=== PATIENT | female | born 1940 | race Caucasian/White ===

== ENCOUNTER 2024-10-07 08:53 | Emergency (ER) | payer MEDICARE, BC, SELFPAY ==
[2024-10-07 08:54] VITALS: PULSE 96
[2024-10-07 08:59] VITALS: BP 121/72; PULSE 104; RESP 17; TEMP 36.8; O2SAT 97; BMI 22.1
--- NOTE | 2024-10-07 09:15 | EDNOTE_ITS ---
ED Abdominal Pain RME/HPI General Chief Complaint: Abdominal Pain Stated complaint: abdominal pain Time seen by provider: 10/07/24 09:13 Arrival date/time: 10/07/24 08:53 RME / HPI RME / HPI narrative: 84 year old female with history of asthma, COPD, hypertension, hypothyroidism, s/p liver failure, recurrent UTI's, indwelling catheter since March 2024, esophageal varices presents to the ED BIBA from home for complaint of I think I have a UTI . States last night she began to have pain across her lower abdomen, right greater than left. Accompanied by nausea and vomiting beginning this morning. Mentioned on 09/30/2024 she had a urinalysis performed showing an infection and prescribed Bactrim which she has taken. Denies fevers, chills, sweats, chest pain, shortness of breath, cough, or hematuria. Patient mentioned her kelly catheter was changed 2 weeks ago. Related Data Home Medications ?Medication ?Instructions ?Recorded ?Confirmed hydroxyzine HCl 10 mg tablet 10 mg PO BID Anxiety 04/18/24 10/07/24 pantoprazole 40 mg tablet,delayed 20 mg PO QDAY Gastric Reflux 04/18/24 10/07/24 release (Protonix) tramadol 50 mg tablet 50 mg PO Q8H PRN Pain, Moderate 04/18/24 10/07/24 potassium chloride 20 mEq 20 meq PO QDAY 05/16/24 10/07/24 tablet,extended release allopurinol 100 mg tablet 100 mg PO DAILY 08/09/24 10/07/24 metoprolol tartrate 25 mg tablet 25 mg PO BID 08/09/24 10/07/24 prednisone 5 mg tablet 5 mg PO QDAY 08/09/24 10/07/24 folic acid 1 mg tablet 1 mg PO DAILY 08/10/24 10/07/24 levothyroxine 50 mcg capsule 50 mcg PO DAILY 08/10/24 10/07/24 Previous Rx's ?Medication ?Instructions ?Recorded spirometers and accessories #1 ea 04/23/24 Allergies Allergy/AdvReac Type Severity Reaction Status Date / Time ciprofloxacin [From Cipro] Allergy Severe Redness of Verified 05/09/24 21:51 Skin doxycycline Allergy Severe Hives Verified 10/07/24 09:38 moxifloxacin [From Avelox] Allergy Severe Dizziness Verified 05/09/24 21:51 Penicillins Allergy Severe Hives Verified 05/09/24 21:51 tetracycline Allergy Severe Hives Verified 05/09/24 21:51 colchicine Allergy Verified 10/07/24 09:38 levofloxacin [From Levaquin] Allergy Verified 10/07/24 09:38 ibuprofen AdvReac Mild Nausea Verified 10/07/24 09:38 Review of Systems Review of Systems Narrative Review of Systems: GEN: No fever, no chills, no weight loss EYES: No discharge, no visual changes, no pain HEENT: No ear pain, no congestion, no sore throat PULM: No shortness of breath, no cough, no congestion CV: No chest pain, no dyspnea on exertion, no palpitations GI: +n/v, no diarrhea, +pain, no constipation : + I think I have a UTI . MUSC/SKEL No joint pain, no back pain SKIN: No rash PSYCH: No hallucinations, no depression HEME/LYMPH: No easy bleeding or bruising tendencies NEURO: No weakness, no headache Past Medical History Past Medical History CARDIAC: Positive Cardiac Disorders, Congestive Heart Failure, Hypertension and Hypotension RESPIRATORY: Positive Chronic Obstructive Pulmonary Disease (COPD), Asthma, Bronchitis and Pneumonia GASTROINTESTINAL: Positive Obesity GENITOURINARY: Positive Genitourinary Disorders and Renal Disease REPRODUCTIVE: Positive Previous Pregnancies MUSCULOSKELETAL: Positive Musculoskeletal Disorders and Gout ENDOCRINE: Positive Endocrine Disorders and Hypothyroidism HEMATOLOGIC: Positive Blood Disorders and Anemia PSYCHO/SOCIAL: Positive Anxiety OTHER HISTORY: Positive Blood Transfusions, Chicken Pox, Measles and Mumps Family History FAMILY HISTORY: Positive Family Cardiac Disorders and Family Cancer Surgical History SURGICAL: Positive Nose Surgery Social History SMOKING STATUS: Current every day smoker SECOND HAND EXPOSURE: No ED Exam Narrative Physical exam: GENERAL APPEARANCE: Well hydrated, well nourished, in no acute distress. VITALS: All vitals were reviewed and the pulse ox is 97% on room air which is normal according to my interpretation. HEENT: Normocephalic, atramatic, EOMI, EACs are patent. There is no bulge or retraction. Throat without erythema or exudate. Moist oromucosa. No jaundice NECK: Supple, no JVD or bruits. CARDIOVASCULAR: Heart regular without S3-S4 or murmur. No rubs or gallops. LUNGS/CHEST: Clear to auscultation bilaterally. No rales, rhonchi, or wheezing. Normal inspection. ABDOMEN: Soft, tenderness in the suprapubic region bilaterally, right and left, normal bowel sounds. No pulsatile masses. No rebound, rigidity, or guarding. No incarcerated hernia. EXTREMITIES: Normal inspection and palpation. No edema, clubbing, or cyanosis. Intact CSM SKIN: Warm and dry without rashes. Normal inspection. MUSCULOSKELETAL: Normal inspection. No gross deformity, full ROM all extremities NEURO: Alert and oriented x3. Cranial nerves II through XII grossly intact. There are no other motor or sensory deficits noted. PSYCHIATRIC: Normal mood and affect. No psychosis Course Quality Measures none Orders Category Date Time Status CT Screening NOW Care 10/07/24 09:34 Active Enema Administration NOW Care 10/07/24 15:30 Completed Fleet [Enema Administration] NOW Care 10/07/24 15:29 Active Kelly [Urinary Catheter] QS Care 10/07/24 15:29 Active Kelly [Urinary Catheter] QS Care 10/07/24 15:[address] abdomen pelvis w con Stat Exams 10/07/24 09:33 Completed CBC Stat Lab 10/07/24 09:35 Completed CMP [Comprehensive Metabolic Panel] Stat Lab 10/07/24 09:35 Completed Lipase Stat Lab 10/07/24 09:35 Completed UA, C/S IF [Urinalysis, C/S if Indicated] Stat Lab 10/07/24 09:50 Completed Urine Culture Stat Lab 10/07/24 09:50 Received Morphine Inj Med 10/07/24 12:19 Discontinued 2 mg IVP X1 ONE Ondansetron Inj [Zofran Inj] Med 10/07/24 12:19 Discontinued 4 mg IV X1 ONE Sodium Chloride 0.9% 1000 ml [Ns] 1,000 ml Med 10/07/24 09:33 Discontinued IV 250 mls/hr Vital Signs Vital signs: Vital Signs Temperature 98.3 F 10/07/24 08:59 Pulse Rate 104 H 10/07/24 08:59 Respiratory Rate 17 10/07/24 08:59 Blood Pressure 121/72 10/07/24 08:59 Pulse Oximetry (%) 97 10/07/24 08:59 Oxygen Delivery Method Room Air 10/07/24 08:59 Abdominal Pain MDM MDM Narrative MDM Narrative:: I, Rebecca Puga, danitza scribing for and in the presence of Dr. Vizcaino. CBC is negative. CMP and lipase negative. UA positive for UTI. CT abdomen and pelvic was reviewed by and interpreted by me as follow. Plenty of stool including the stool in the distal rectum. Bladder was distended in spite of having Kelly in. No free air. No free fluid. No bowel obstruction. The old Kelly which is clogged was removed by the nursing staff, a brand-new Kelly was inserted and we get plenty of urine coming out which is about 800 mL of urine. Nurse also gave the patient 2 Fleet enema [id number]. And the patient had plenty of stool coming out. And she feeling much better. 6 PM, the patient is stable and improved and wants to go home. UA is positive for UTI but the patient does not want to take any new antibiotic. She is currently on Bactrim. She says she is allergic to a lot and Bactrim is one of the medication that she can tolerate. Daughter had the same opinion? That is she does not want the antibiotic to be changed Patient data External records reviewed:: [facility] previous records (08/08/2024 through 08/12/2024 for UTI ) and EMS form Clinical information provided by:: patient and EMS Social determinants that could affect healthcare access:: none Patient has the following chronic illnesses:: asthma, COPD, hypertension, hypothyroidism, s/p liver failure, indwelling catheter since March 2024, esophageal varices How is presenting disease/condition affected by chronic disease/condition?: e xacerbated by Evaluation data The following diagnostics were reviewed and interpreted by me:: lab results and radiology exam(s) Lab and/or radiology exams considered but not ordered:: None Interpretation Summary: Ordering Physician: Cullen Vizcaino MD Date of Service: 10/07/24 Procedure(s): CT abdomen pelvis w con Accession Number(s): [id number] cc: Mireya Pagan; David Bower MD; Cullen Vizcaino MD~ Examination: CT abdomen with intravenous contrast CT pelvis with intravenous contrast 2-D coronal reconstructions 2-D sagittal reconstructions Date and time of exam:October 07, 2024 1208 hours INDICATIONS: Onset lower abdominal pain today COMPARISON: 08/08/2024. CTDI: vol (mGy) 6.49 DLP: (mGycm) 341 Technique: Multiple axial sections of the abdomen and pelvis have been obtained. 64 slice high-resolution scanner used. 3 mm axial sections have been obtained, post intravenous injection 60 cc [id number] 2-D sagittal, coronal reconstructions obtained. Low dose protocols were performed. One or more of the following dose reduction techniques were used; automated exposure control, adjustment of the mA and/or KV according to patient size, use of iterative reconstruction technique. Findings: Mild enlargement cardiac contour Minimal bilateral pleural fluid Pericardial effusion measuring up to 9 mm in thickness No visualized liver or splenic lesion Distended gallbladder gallbladder wall appears mildly thickened No pancreatic or adrenal mass Tiny bilateral renal cysts, no hydronephrosis Heavy abdominal aortic calcification Multiple fluid distended small bowel loops Normal appendix Atrophic anteverted uterus Very large amounts of stool in the rectum with thickening of the rectal wall Mild bladder wall thickening Advanced diffuse lumbar degenerative disc disease IMPRESSION: Distended gallbladder, recommend repeating the gallbladder sonogram No hydronephrosis Fluid distended small bowel loops, consider ileus enteritis Normal appendix Large amounts of stool in the rectum with thickening of the rectal wall, differential would include proctitis Dictated By: David Bower MD Signed By: <Electronically signed by David Bower MD in [place]> 10/07/24 1314 Medications / Prescriptions Medications or Prescriptions considered but not ordered:: None Medication administrations:: Medication Administration History Discontinued Medications Sodium Chloride (Ns) 1,000 mls @ 250 mls/hr IV .Q4H ONE Stop: 10/07/24 13:32 Last Infusion: 10/07/24 13:53 Dose: Infused Documented By: Admin: 10/07/24 10:08 Dose: 250 mls/hr Documented By: ROSSANA Morphine Sulfate (Morphine Sulf Inj 10 Mg/Ml Vial) 2 mg IVP X1 ONE Stop: 10/07/24 12:20 Last Admin: 10/07/24 12:30 Dose: 2 mg Documented By: KM Ondansetron HCl (Ondansetron Inj 2 Mg/Ml Inj 2 Ml) 4 mg IV X1 ONE; Protocol Stop: 10/07/24 12:20 Last Admin: 10/07/24 12:30 Dose: 4 mg Documented By: RAFFY See above Consultations Consultation(s) initiated? (list below): No Diagnosis Differential diagnosis abdominal pain: abdominal pain, acute appendicitis, calculus of kidney and other (UTI) Most likely diagnosis given after review of the tests above:: Urinary tract infection Constipation Urinary retention Kelly change Admission Indicated Admission indicated?: not indicated Admission Request Was there a request for admission?: No Disposition Plan Disposition Plan: Discharge Discharge Attestation Discharge Attestation: The patient and all family members were given an opportunity to ask questions and understood the discharge instructions. Discharge instructions specifically effects, indications for sooner follow up or return to the emergency department, and the expected course of current diagnosis. Patient condition: Stable Discharge Plan Plan Patient Disposition: HOME (Self Care) Disposition Comment: Stable and improved Prescriptions/Referrals Prescriptions/Med Rec: No Action tramadol 50 mg Tablet 50 mg PO Q8H PRN (Reason: Pain, Moderate) hydroxyzine HCl 10 mg Tablet 10 mg PO BID Hold Instructions: Resume on 06/11/24. re evaluate with PCP, unable to verify pantoprazole [Protonix] 40 mg tablet,delayed release (DR/EC) 20 mg PO QDAY (DME) spirometers and accessories Device See Rx Instructions .Route Qty: 1 0RF Rx Instructions: As directed prednisone 5 mg tablet 5 mg PO QDAY Patient Comments: TAKE 1 TABLET BY MOUTH EVERY DAY FOR 30 DAYS allopurinol 100 mg tablet 100 mg PO DAILY Patient Comments: TAKE 1 TABLET TWICE A DAY BY ORAL ROUTE FOR 90 DAYS. metoprolol tartrate 25 mg tablet 25 mg PO BID Hold Instructions: Resume on 08/17/24. Unable to verify if patient is taking medication. Follow up with PCP Patient Comments: TAKE 1 TABLET BY MOUTH TWICE A DAY folic acid 1 mg Tablet 1 mg PO DAILY levothyroxine 50 mcg Capsule 50 mcg PO DAILY potassium chloride 20 mEq Tablet Extended Release 20 meq PO QDAY Hold Instructions: Resume on 06/10/24. re evaluate with PCP, unable to verify Referrals: Mireya Pagan FNP [Primary Care Provider] - In 1 week Problem List Clinical Impression: Constipation, Urinary tract infection, Acute urinary retention Patient/Caregiver Discharge Instructions Education Materials: Urinary Tract Infections in Women, ED Constipation (Adult), ED Urinary Retention, Female Additional Instructions: You can take OTC laxative such as milk of magnesia for constipation. You can continue your Bactrim for UTI. You did not want to change antibiotic. Follow- up with your medical doctor in 3 days. Return to the emergency department if condition worsens or if new symptoms develop. Print Language: [place] Stand Alone Forms: [employer]ja Award Info., Patient Portal Info Letter
--- NOTE | 2024-10-07 09:33 | XR_ITS ---
Examination: CT abdomen with intravenous contrast CT pelvis with intravenous contrast 2-D coronal reconstructions 2-D sagittal reconstructions Date and time of exam:October 07, 2024 1208 hours INDICATIONS: Onset lower abdominal pain today COMPARISON: 08/08/2024. CTDI: vol (mGy) 6.49 DLP: (mGycm) 341 Technique: Multiple axial sections of the abdomen and pelvis have been obtained. 64 slice high-resolution scanner used. 3 mm axial sections have been obtained, post intravenous injection 60 cc [id number] 2-D sagittal, coronal reconstructions obtained. Low dose protocols were performed. One or more of the following dose reduction techniques were used; automated exposure control, adjustment of the mA and/or KV according to patient size, use of iterative reconstruction technique. Findings: Mild enlargement cardiac contour Minimal bilateral pleural fluid Pericardial effusion measuring up to 9 mm in thickness No visualized liver or splenic lesion Distended gallbladder gallbladder wall appears mildly thickened No pancreatic or adrenal mass Tiny bilateral renal cysts, no hydronephrosis Heavy abdominal aortic calcification Multiple fluid distended small bowel loops Normal appendix Atrophic anteverted uterus Very large amounts of stool in the rectum with thickening of the rectal wall Mild bladder wall thickening Advanced diffuse lumbar degenerative disc disease IMPRESSION: Distended gallbladder, recommend repeating the gallbladder sonogram No hydronephrosis Fluid distended small bowel loops, consider ileus enteritis Normal appendix Large amounts of stool in the rectum with thickening of the rectal wall, differential would include proctitis
[2024-10-07 09:56] LABS: Collection Type, Urine Catheter
[2024-10-07 09:58] LABS: Basophils # (Auto) 0.1 Thou/mm3 (0.0-0.2); Basophils % (Auto) 1 % (0-2.5); Eosinophils # (Auto) 0.5 Thou/mm3 (0.0-0.5); Eosinophils % (Auto) 5 % (0-10); Hematocrit 34.9 % (36.0-46.0); Hemoglobin 11.3 g/dL (12.0-16.0); Immature Granulocytes % (Auto) 0 % (0-0); Immature Granulocytes Auto 0.02 Thou/mm3 (0.00-0.00); Lymphocytes # (Auto) 2.1 Thou/mm3 (1.0-4.8); Lymphocytes % (Auto) 24 % (10-50); Mean Corpuscular HGB Conc 32.4 g/dl (31.0-37.0); Mean Corpuscular Hemoglobin 27.3 pg (25.0-35.0); Mean Corpuscular Volume 84 fL (80-100); Monocytes # (Auto) 0.7 Thou/mm3 (0.0-0.8); Monocytes % (Auto) 8 % (0-12); Neutrophils # (Auto) 5.6 Thou/mm3 (1.8-7.7); Neutrophils % (Auto) 63 % (37-80); Nucleated Red Blood Cell % 0 /100 WBC (0); Platelet Count 341 Thou/mm3 (140-440); RDW Standard Deviation 49.4 fL (36.4-46.3); Red Blood Count 4.14 Miln/mm3 (4.00-5.20); White Blood Count 8.9 Thou/mm3 (3.6-11.0)
[2024-10-07 10:03] LABS: Amorphous Crystals,Urine Present (Absent); Bacteria,Urine Rare; Bilirubin,Urine Negative (Negative); Blood,Urine Negative (Negative); Color,Urine Lt-Yellow (Lt Yel-Yel); Glucose, Urine Negative (Negative); Ketones,Urine Negative (Negative); Leukocyte Esterase,Urine Positive (Negative); Nitrite,Urine Positive (Negative); PH,Urine 8.5 (5.0-7.0); Protein,Urine 1+ (Neg - Trace); RBC,Urine 10 /hpf (0-3); Specific Gravity,Urine 1.017 (1.001-1.035); Squamous Epithelial Cell,Urine < 1 /hpf (0-5); Triple Phosphate Crystal,Urine 2+; Urobilinogen,Urine Negative mg/dL (0.0-1.0); WBC,Urine 7 /hpf (0-5)
[2024-10-07 10:06] LABS: Culture Indicated,Urine Yes
[2024-10-07 10:07] LABS: Clarity,Urine Hazy (Clear/Hazy)
[2024-10-07] MEDS: SODIUM CHLORIDE 0.9% 1000 ML 1,000 ML 250 ML IV (10:08)
[2024-10-07 10:17] LABS: Alanine Aminotransferase 17 U/L (10-49); Albumin, Serum 3.6 gm/dL (3.4-4.8); Albumin/Globulin Ratio 1.6 (1.2-2.2); Alkaline Phosphatase 78 U/L (46-116); Anion Gap 8 (7-16); Aspartate Amino Transferase 10 U/L (0-34); BUN/Creatinine Ratio 32 Ratio (12-20); Bilirubin,Total 0.3 mg/dL (0.3-1.2); Blood Urea Nitrogen 19 mg/dL (9-23); Calcium 9.9 mg/dL (8.3-10.6); Calcium (Corrected) 10.2 mg/dL (8.5-10.1); Carbon Dioxide 20.5 mMol/L (20.0-31.0); Chloride 109 mMol/L (98-107); Creatinine (Component) 0.6 mg/dL (0.6-1.3); Estimated Creatinine Clearance 57.2 mL/min (>60); Globulin 2.2 gm/dL (2.3-3.5); Glucose 88 mg/dL (74-106); Lipase 39 U/L (12-53); Osmolality,Calculated 275 (275-295); Potassium 4.1 mMol/L (3.4-5.1); Sodium 137 mMol/L (136-145); Total Protein 5.8 gm/dL (5.7-8.2); eGFR > 60 See Note
--- NOTE | 2024-10-07 12:12 | PC.NURSE ---
patient taken to ct
[2024-10-07 12:27] VITALS: BP 112/67; PULSE 94; RESP 14; TEMP 36.9; O2SAT 100
[2024-10-07] MEDS: ONDANSETRON INJ 2 MG/ML INJ 2 ML 4 MG IV (12:30)
[2024-10-07] MEDS: MORPHINE SULF INJ 10 MG/ML VIAL 2 MG IVP (12:30)
--- NOTE | 2024-10-07 13:54 | PC.NURSE ---
Patient states pain to lower abdomen decreased to 5/10 at this time, patient awaiting lab and xray results, call light within reach.
[2024-10-07 14:14] VITALS: BP 90/56; PULSE 111; RESP 18; TEMP 36.8; O2SAT 100
[2024-10-07 15:03] VITALS: BP 144/93; PULSE 109; RESP 18; TEMP 36.3; O2SAT 100
--- NOTE | 2024-10-07 17:04 | PC.NURSE ---
Patient had large brown soft bm s/p administration of fleet enema, Dr. Vizcaino made aware.
[2024-10-07 18:50] VITALS: BP 97/61; PULSE 98; RESP 17; TEMP 36.5; O2SAT 99
--- NOTE | 2024-10-07 19:13 | PC.CC ---
[facility] was [facility] for [facility] for patient back home. [facility] set up transportation back home for patient via [facility].
--- NOTE | 2024-10-07 19:19 | PC.NURSE ---
S/S set up [facility] transport, they will come to er to take patient home eta approx, 1944
== END 2024-10-07 20:16 | disposition home or self-care (01) ==
PROVIDERS: Emergency Provider Emergency Medicine; PCP Nurse Practitioner
DX: N39.0 Urinary tract infection, site not specified (principal); K59.00 Constipation, unspecified; K82.8 Other specified diseases of gallbladder; K63.89 Other specified diseases of intestine
CPT/HCPCS: 51702; 36415; 74177; 80053; 81001; 83690; 85025; 87077; 87086; 87186; 96361; 96374; 96375; 99285; A4649; J2270; J2405; J7030; Q9967

== ENCOUNTER → 2024-10-12 | Outpatient (CLI) | payer MEDICARE, BC, SELFPAY ==
[2024-10-12 13:50] LABS: Collection Type, Urine Clean Catch
[2024-10-12 15:16] LABS: Amorphous Crystals,Urine Present (Absent); Bacteria,Urine 3+; Bilirubin,Urine Negative (Negative); Blood,Urine Negative (Negative); Glucose, Urine Negative (Negative); Ketones,Urine Negative (Negative); Leukocyte Esterase,Urine Positive (Negative); Nitrite,Urine Positive (Negative); PH,Urine 8.5 (5.0-7.0); Protein,Urine 3+ (Neg - Trace); RBC,Urine 13 /hpf (0-3); Specific Gravity,Urine 1.024 (1.001-1.035); Squamous Epithelial Cell,Urine 1 /hpf (0-5); Urobilinogen,Urine Negative mg/dL (0.0-1.0); WBC,Urine 17 /hpf (0-5)
[2024-10-12 15:20] LABS: Color,Urine Yellow (Lt Yel-Yel)
[2024-10-12 15:21] LABS: Clarity,Urine Turbid (Clear/Hazy); Culture Indicated,Urine Yes
== END | disposition home or self-care (01) ==
PROVIDERS: PCP Family Medicine; Referring Provider Nurse Practitioner; Visit Provider Nurse Practitioner
DX: N30.20 Other chronic cystitis without hematuria (principal)
CPT/HCPCS: 81001; 87077; 87086; 87186

== ENCOUNTER 2024-10-20 18:31 | Emergency (ER) | payer MEDICARE, BC, SELFPAY ==
[2024-10-20 18:42] VITALS: BP 128/90; PULSE 82; RESP 17; TEMP 36.9; O2SAT 96
[2024-10-20 18:43] VITALS: BMI 22.1
[2024-10-20 18:53] VITALS: PULSE 71; O2SAT 98
[2024-10-20 18:58] LABS: Basophils # (Auto) 0.1 Thou/mm3 (0.0-0.2); Basophils % (Auto) 1 % (0-2.5); Eosinophils # (Auto) 0.2 Thou/mm3 (0.0-0.5); Eosinophils % (Auto) 2 % (0-10); Hematocrit 37.4 % (36.0-46.0); Hemoglobin 12.3 g/dL (12.0-16.0); Immature Granulocytes % (Auto) 0 % (0-0); Immature Granulocytes Auto 0.02 Thou/mm3 (0.00-0.00); Lymphocytes # (Auto) 1.8 Thou/mm3 (1.0-4.8); Lymphocytes % (Auto) 17 % (10-50); Mean Corpuscular HGB Conc 32.9 g/dl (31.0-37.0); Mean Corpuscular Hemoglobin 27.6 pg (25.0-35.0); Mean Corpuscular Volume 84 fL (80-100); Monocytes # (Auto) 0.9 Thou/mm3 (0.0-0.8); Monocytes % (Auto) 8 % (0-12); Neutrophils # (Auto) 7.8 Thou/mm3 (1.8-7.7); Neutrophils % (Auto) 73 % (37-80); Nucleated Red Blood Cell % 0 /100 WBC (0); Platelet Count 390 Thou/mm3 (140-440); Red Blood Count 4.45 Miln/mm3 (4.00-5.20); White Blood Count 10.8 Thou/mm3 (3.6-11.0)
--- NOTE | 2024-10-20 18:59 | PD.EDABDPN ---
ED Abdominal Pain RME/HPI General Chief Complaint: Abdominal Pain Stated complaint: ABDOMINAL PAIN X 1500 Time seen by provider: 10/20/24 18:34 Arrival date/time: 10/20/24 18:31 RME / HPI RME / HPI narrative: Dr. Ospina?s Main ED Evaluation: 84-year-old female with history of hypothyroidism, hypertension, GERD, chronic pain brought in by EMS with chief complaint of acute onset of lower abdominal pain. Patient states she has had a indwelling Saini for the past 6 to 8 months and has had recurrent UTIs including episodes of sepsis, 1 of which led to liver as well as renal failure. Apparently she has recovered from that. She states she thinks that she has a UTI again. She complains of chronic lower back pain but no specific flank pain. No fevers, shakes, chills, sweats. No chest pain or dyspnea. patient states that she was in severe pain but now much better. Related Data Home Medications ?Medication ?Instructions ?Recorded ?Confirmed hydroxyzine HCl 10 mg tablet 10 mg PO BID Anxiety 04/18/24 10/07/24 pantoprazole 40 mg tablet,delayed 20 mg PO QDAY Gastric Reflux 04/18/24 10/07/24 release (Protonix) tramadol 50 mg tablet 50 mg PO Q8H PRN Pain, Moderate 04/18/24 10/07/24 potassium chloride 20 mEq 20 meq PO QDAY 05/16/24 10/07/24 tablet,extended release allopurinol 100 mg tablet 100 mg PO DAILY 08/09/24 10/07/24 metoprolol tartrate 25 mg tablet 25 mg PO BID 08/09/24 10/07/24 prednisone 5 mg tablet 5 mg PO QDAY 08/09/24 10/07/24 folic acid 1 mg tablet 1 mg PO DAILY 08/10/24 10/07/24 levothyroxine 50 mcg capsule 50 mcg PO DAILY 08/10/24 10/07/24 Previous Rx's ?Medication ?Instructions ?Recorded spirometers and accessories #1 ea 04/23/24 phenazopyridine 100 mg tablet 100 mg PO TID PRN pain 6 doses #6 10/20/24 (Pyridium) tabs sulfamethoxazole 800 1 tab PO Q12H 7 days #14 tabs 10/20/24 mg-trimethoprim 160 mg tablet (Bactrim DS) Allergies Allergy/AdvReac Type Severity Reaction Status Date / Time ciprofloxacin [From Cipro] Allergy Severe Redness of Verified 05/09/24 21:51 Skin doxycycline Allergy Severe Hives Verified 10/07/24 09:38 moxifloxacin [From Avelox] Allergy Severe Dizziness Verified 05/09/24 21:51 Penicillins Allergy Severe Hives Verified 05/09/24 21:51 tetracycline Allergy Severe Hives Verified 05/09/24 21:51 colchicine Allergy Verified 10/07/24 09:38 levofloxacin [From Levaquin] Allergy Verified 10/07/24 09:38 ibuprofen AdvReac Mild Nausea Verified 10/07/24 09:38 Review of Systems Review of Systems Systems Reviewed: All systems reviewed, normal except as documented ED Exam Narrative Physical exam: GENERAL APPEARANCE: alert and oriented x 4, well-developed, well-nourished, is smiling and laughing, no acute distress VITALS: All vitals were reviewed and the pulse ox is 96% on room air, which is normal according to my interpretation. HEENT: Normocephalic, atraumatic; pupils equal, round, reactive to light; EOMI; mucous membranes pink, moist; oropharynx clear NECK: Supple LUNGS: CTABL; no wheezes, no rales, no rhonchi HEART: Regular rate, regular rhythm; normal S1, S2; no murmurs ABDOMEN: non distended; normal BS; soft, mild tenderness, no guarding, no rebound; no masses, no organomegaly, no hernia BACK: no CVA tenderness EXTREMITIES: atraumatic; no edema NEUROLOGIC: awake; alert and oriented x4; cranial nerves II-XII grossly intact; no focal sensory or motor deficits PSYCHIATRIC: appropriate mood and affect SKIN: warm, dry, normal color; no rashes Course Course Course Narrative: 2111: Patient's CT was canceled as she just had a CT performed 2 weeks ago. Patient has a UTI and will treat. She is allergic to fluoroquinolones as well as penicillin and tetracyclines. Patient discharged with prescription for Bactrim twice daily x 7 days and Pyridium. She has to follow-up with the primary care doctor Quality Measures none Orders Category Date Time Status Miscellaneous Nursing Order NOW Care 10/20/24 19:57 Completed NPO STAT Care 10/20/24 18:35 Completed CBC Stat Lab 10/20/24 18:50 Completed Comprehensive Metabolic Panel Stat Lab 10/20/24 18:50 Completed Free T4 (Free Thyroxine) Stat Lab 10/20/24 18:50 Completed Lipase Stat Lab 10/20/24 18:50 Completed Magnesium Stat Lab 10/20/24 18:50 Completed TSH [Thyroid Stimulating Hormone] Stat Lab 10/20/24 18:50 Completed Urinalysis Stat Lab 10/20/24 20:31 Completed Acetaminophen Tab [Tylenol ES Tab] Med 10/20/24 18:40 Discontinued 1,000 mg PO X1 ONE Morphine Inj Med 10/20/24 18:35 Discontinued 2 mg IVP Q30M PRN Sodium Chloride 0.9% 500 ml [Ns] 500 ml Med 10/20/24 18:35 Discontinued IV 999 mls/hr Vital Signs Vital signs: Vital Signs Temperature 98.5 F 10/20/24 18:42 Pulse Rate 82 10/20/24 18:42 Respiratory Rate 17 10/20/24 18:42 Blood Pressure 128/90 H 10/20/24 18:42 Pulse Oximetry (%) 96 10/20/24 18:42 Oxygen Delivery Method Room Air 10/20/24 18:42 Abdominal Pain MDM MDM Narrative MDM Narrative:: Patient is a 84-year-old female who presented to the emergency department with UTI-like symptoms. Patient has indwelling Saini catheter and has had multiple urinary tract infections in the past months. Patient is positive for a UTI and based on physical exam and workup she has no complications thereof. No signs of sepsis. Will treat Patient data External records reviewed:: [facility] previous records (Per chart review, patient was seen here on 10/07/24 for acute urinary retention.) Clinical information provided by:: patient Social determinants that could affect healthcare access:: none Patient has the following chronic illnesses:: asthma, COPD, hypertension, hypothyroidism, s/p liver failure, recurrent UTI's, indwelling catheter since March 2024, esophageal varice How is presenting disease/condition affected by chronic disease/condition?: uneffected by Evaluation data The following diagnostics were reviewed and interpreted by me:: lab results Lab and/or radiology exams considered but not ordered:: none Interpretation Summary: CBC is normal, CMP is normal, Lipase is normal, according to my interpretation. Medications / Prescriptions Medications or Prescriptions considered but not ordered:: none Medication administrations:: Medication Administration History Discontinued Medications Acetaminophen (Acetaminophen 500 Mg Tablet) 1,000 mg PO X1 ONE Stop: 10/20/24 18:41 Last Admin: 10/20/24 18:52 Dose: Not Given Documented By: KF Non-Admin Reason: Patient Refused Sodium Chloride (Ns) 500 mls @ 999 mls/hr IV .Q31M ONE Stop: 10/20/24 19:05 Last Admin: 10/20/24 19:07 Dose: Not Given Documented By: HAYDER Non-Admin Reason: Change of Condition Morphine Sulfate (Morphine Sulf Inj 10 Mg/Ml Vial) 2 mg IVP Q30M PRN PRN Reason: PAIN SCALE 4-10(Mod-Sev Stop: 10/20/24 20:36 see above Consultations Consultation(s) initiated? (list below): No Diagnosis Differential diagnosis abdominal pain: other (UTI, acute urinary retention, pyelonephritis) Most likely diagnosis given after review of the tests above:: see below Admission Indicated Admission indicated?: not indicated Admission Request Was there a request for admission?: No Disposition Plan Disposition Plan: Discharge Discharge Attestation Discharge Attestation: The patient and all family members were given an opportunity to ask questions and understood the discharge instructions. Discharge instructions specifically effects, indications for sooner follow up or return to the emergency department, and the expected course of current diagnosis. Patient condition: Stable Discharge Plan Plan Patient Disposition: HOME (Self Care) Disposition Comment: Stable for discharge Patient condition on transfer: Stable Prescriptions/Referrals Prescriptions/Med Rec: New sulfamethoxazole-trimethoprim [Bactrim DS] 800-160 mg tablet 1 tab PO Q12H 7 Days Qty: 14 0RF phenazopyridine [Pyridium] 100 mg tablet 100 mg PO TID PRN (Reason: pain) Qty: 6 0RF No Action tramadol 50 mg Tablet 50 mg PO Q8H PRN (Reason: Pain, Moderate) hydroxyzine HCl 10 mg Tablet 10 mg PO BID Hold Instructions: Resume on 06/11/24. re evaluate with PCP, unable to verify pantoprazole [Protonix] 40 mg tablet,delayed release (DR/EC) 20 mg PO QDAY (DME) spirometers and accessories Device See Rx Instructions .Route Qty: 1 0RF Rx Instructions: As directed prednisone 5 mg tablet 5 mg PO QDAY Patient Comments: TAKE 1 TABLET BY MOUTH EVERY DAY FOR 30 DAYS allopurinol 100 mg tablet 100 mg PO DAILY Patient Comments: TAKE 1 TABLET TWICE A DAY BY ORAL ROUTE FOR 90 DAYS. metoprolol tartrate 25 mg tablet 25 mg PO BID Hold Instructions: Resume on 08/17/24. Unable to verify if patient is taking medication. Follow up with PCP Patient Comments: TAKE 1 TABLET BY MOUTH TWICE A DAY folic acid 1 mg Tablet 1 mg PO DAILY levothyroxine 50 mcg Capsule 50 mcg PO DAILY potassium chloride 20 mEq Tablet Extended Release 20 meq PO QDAY Hold Instructions: Resume on 06/10/24. re evaluate with PCP, unable to verify Referrals: Mireya Pagan FNP [Primary Care Provider] - In 1 week Problem List Clinical Impression: Urinary tract infection Patient/Caregiver Discharge Instructions Discharge Activity: activity as tolerated Education Materials: Urinary Tract Infections in Women Additional Instructions: Please return to the emergency department for any worsening or any further medical problems Print Language: Luxembourgish Stand Alone Forms: Sonja Award Info., Patient Portal Info Letter
[2024-10-20 19:24] LABS: Alanine Aminotransferase 14 U/L (10-49); Albumin, Serum 3.8 gm/dL (3.4-4.8); Albumin/Globulin Ratio 1.7 (1.2-2.2); Alkaline Phosphatase 102 U/L (46-116); Anion Gap 9 (7-16); Aspartate Amino Transferase 12 U/L (0-34); BUN/Creatinine Ratio 28 Ratio (12-20); Bilirubin,Total 0.5 mg/dL (0.3-1.2); Blood Urea Nitrogen 17 mg/dL (9-23); Calcium 9.8 mg/dL (8.3-10.6); Carbon Dioxide 21.1 mMol/L (20.0-31.0); Chloride 107 mMol/L (98-107); Creatinine (Component) 0.6 mg/dL (0.6-1.3); Estimated Creatinine Clearance 57.2 mL/min (>60); Globulin 2.3 gm/dL (2.3-3.5); Glucose 104 mg/dL (74-106); Lipase 33 U/L (12-53); Magnesium 1.5 mg/dL (1.6-2.6); Osmolality,Calculated 275 (275-295); Potassium 4.3 mMol/L (3.4-5.1); Sodium 137 mMol/L (136-145); Thyroid Stimulating Hormone 9.87 uIU/mL (0.55-4.78); Total Protein 6.1 gm/dL (5.7-8.2); eGFR > 60 See Note
[2024-10-20 20:48] LABS: Collection Type, Urine Catheter
[2024-10-20 20:57] LABS: Bacteria,Urine Rare; Bilirubin,Urine Negative (Negative); Blood,Urine Negative (Negative); Budding Yeast,Urine Present; Color,Urine Yellow (Lt Yel-Yel); Glucose, Urine Negative (Negative); Ketones,Urine Negative (Negative); Leukocyte Esterase,Urine Positive (Negative); Nitrite,Urine Positive (Negative); PH,Urine 8.5 (5.0-7.0); Protein,Urine 4+ (Neg - Trace); RBC,Urine 57 /hpf (0-3); Specific Gravity,Urine 1.018 (1.001-1.035); Squamous Epithelial Cell,Urine 3 /hpf (0-5); Urobilinogen,Urine Negative mg/dL (0.0-1.0); WBC,Urine 111 /hpf (0-5)
[2024-10-20 20:59] LABS: Clarity,Urine Turbid (Clear/Hazy)
[2024-10-20 22:23] VITALS: BP 138/88; PULSE 70; RESP 18; TEMP 36.9; O2SAT 96
--- NOTE | 2024-10-20 22:26 | PC.NURSE ---
per provider pt is ok for discharge. transportation arranged with ems. eta is 2300. spoke to patient's daughter Trinidad. Daughter lives with patient will be home to receive patient.
== END 2024-10-20 22:27 | disposition home or self-care (01) ==
PROVIDERS: Emergency Provider Emergency Medicine; PCP Nurse Practitioner
DX: N39.0 Urinary tract infection, site not specified (principal)
CPT/HCPCS: 36415; 80053; 81001; 83690; 83735; 84439; 84443; 85025; 99283

== ENCOUNTER → 2024-11-06 | Outpatient (CLI) | payer MEDICARE, BC, SELFPAY ==
[2024-11-06 13:58] LABS: Collection Type, Urine Catheter
[2024-11-06 14:49] LABS: Amorphous Crystals,Urine Present (Absent); Bacteria,Urine Rare; Bilirubin,Urine Negative (Negative); Blood,Urine Trace (Negative); Color,Urine Yellow (Lt Yel-Yel); Glucose, Urine Negative (Negative); Ketones,Urine Negative (Negative); Leukocyte Esterase,Urine Positive (Negative); Nitrite,Urine Positive (Negative); Protein,Urine 1+ (Neg - Trace); RBC,Urine 15 /hpf (0-3); Specific Gravity,Urine 1.018 (1.001-1.035); Squamous Epithelial Cell,Urine < 1 /hpf (0-5); Urobilinogen,Urine Negative mg/dL (0.0-1.0); WBC,Urine 165 /hpf (0-5)
[2024-11-06 14:51] LABS: Clarity,Urine Hazy (Clear/Hazy); Culture Indicated,Urine Yes
== END | disposition home or self-care (01) ==
LOC: SLDO 13:52
PROVIDERS: Referring Provider Family Medicine; Visit Provider Family Medicine
DX: Z87.440 Personal history of urinary (tract) infections (principal)
CPT/HCPCS: 81001; 87077; 87086; 87186

== ENCOUNTER 2024-12-02 23:26 | Emergency (ER) | payer MEDICARE, BC, SELFPAY ==
[2024-12-02 23:39] VITALS: BP 105/58; PULSE 63; RESP 19; TEMP 36.8; O2SAT 100
--- NOTE | 2024-12-02 23:41 | EDNOTE_ITS ---
ED General RME/HPI General Chief complaint: Abdominal Pain Stated complaint: ABD PAIN Time Seen by Provider: 12/02/24 23:35 Arrival date/time: 12/02/24 23:26 RME / HPI RME / HPI narrative: Dr. Ospina?s Main ED Evaluation: 84yo female with a history of asthma, COPD, hypertension, hypothyroidism, s/p liver failure, recurrent UTI's, indwelling catheter since March 2024, esophageal varice, gout BIBA from home presents to the ED for a chief complaint of suprapubic pain x a few months. Patient states she has her kelly catheter changed how every 30 days, but reports she's been having to have it changed more frequently. Patient states she's been passing more crystals in her kelly, reporting some get stuck and came in tonight to have her kelly changed. She denies any fever, chills, N/V or any other associated symptoms. Patient notes the last time her kelly was changed was on 11/17/24. Related Data Home Medications ?Medication ?Instructions ?Recorded ?Confirmed hydroxyzine HCl 10 mg tablet 10 mg PO BID Anxiety 04/18/24 10/07/24 pantoprazole 40 mg tablet,delayed 20 mg PO QDAY Gastric Reflux 04/18/24 10/07/24 release (Protonix) tramadol 50 mg tablet 50 mg PO Q8H PRN Pain, Moderate 04/18/24 10/07/24 potassium chloride 20 mEq 20 meq PO QDAY 05/16/24 10/07/24 tablet,extended release allopurinol 100 mg tablet 100 mg PO DAILY 08/09/24 10/07/24 metoprolol tartrate 25 mg tablet 25 mg PO BID 08/09/24 10/07/24 prednisone 5 mg tablet 5 mg PO QDAY 08/09/24 10/07/24 folic acid 1 mg tablet 1 mg PO DAILY 08/10/24 10/07/24 levothyroxine 50 mcg capsule 50 mcg PO DAILY 08/10/24 10/07/24 Previous Rx's ?Medication ?Instructions ?Recorded spirometers and accessories #1 ea 04/23/24 phenazopyridine 100 mg tablet 100 mg PO TID PRN pain 6 doses #6 10/20/24 (Pyridium) tabs Allergies Allergy/AdvReac Type Severity Reaction Status Date / Time ciprofloxacin [From Cipro] Allergy Severe Redness of Verified 05/09/24 21:51 Skin doxycycline Allergy Severe Hives Verified 10/07/24 09:38 moxifloxacin [From Avelox] Allergy Severe Dizziness Verified 05/09/24 21:51 Penicillins Allergy Severe Hives Verified 05/09/24 21:51 tetracycline Allergy Severe Hives Verified 05/09/24 21:51 colchicine Allergy Verified 10/07/24 09:38 levofloxacin [From Levaquin] Allergy Verified 10/07/24 09:38 ibuprofen AdvReac Mild Nausea Verified 10/07/24 09:38 Review of Systems Review of Systems Systems Reviewed: All systems reviewed, normal except as documented ED Exam Narrative Physical exam: GENERAL APPEARANCE: alert and oriented x 4, well-developed, well-nourished, has indwelling kelly catheter in place, no acute distress VITALS: All vitals were reviewed and the pulse ox is 100% on room air, which is normal according to my interpretation. HEENT: Normocephalic, atraumatic; pupils equal, round, reactive to light; EOMI; mucous membranes pink, moist; oropharynx clear NECK: Supple LUNGS: CTABL; no wheezes, no rales, no rhonchi HEART: Regular rate, regular rhythm; normal S1, S2; no murmurs ABDOMEN: non distended; normal BS; soft, mild suprapubic tenderness, no guarding, no rebound; no masses, no organomegaly, no hernia BACK: no CVA tenderness EXTREMITIES: atraumatic; no edema; mild BLE spastic paresis NEUROLOGIC: awake; alert and oriented x4; cranial nerves II-XII grossly intact; no focal sensory or motor deficits PSYCHIATRIC: appropriate mood and affect SKIN: warm, dry, normal color; no rashes Course Quality Measures none Orders Category Date Time Status Director Digital Catalogue STAT Care 12/03/24 00:06 Active Continuous Pulse Oximetry STAT Care 12/03/24 00:06 Completed EKG (ED ONLY) *Do not use* NOW Care 12/03/24 00:06 Completed Insert IV STAT Care 12/03/24 00:05 Active Urinary Catheter STAT Care 12/03/24 00:[address] pelvis wo con Stat Exams 12/03/24 00:05 Taken EKG (ED Only) Stat Exams 12/03/24 00:05 Ordered CBC Stat Lab 12/03/24 00:17 Completed Comprehensive Metabolic Panel Stat Lab 12/03/24 00:17 Completed Lipase Stat Lab 12/03/24 00:17 Completed Magnesium Stat Lab 12/03/24 00:17 Completed Urinalysis Stat Lab 12/03/24 00:40 Completed Urine Culture Stat Lab 12/03/24 00:05 Received Acetaminophen Ivpb [Ofirmev Inj] Med 12/03/24 00:08 Discontinued 1,000 mg in 100 ml IV NOW Morphine Inj Med 12/03/24 00:07 Active 2 mg IVP Q30M PRN Ondansetron Inj [Zofran Inj] Med 12/03/24 00:07 Discontinued 4 mg IV X1 ONE Sodium Chloride 0.9% 1000 ml [Ns] 1,000 ml Med 12/03/24 00:05 Discontinued IV 999 mls/hr Reevaluation(s) Reevaluation #1: Patient states she feels significantly better compared to when she initially came in. She states her last bowel movement was earlier today. Urinalysis is pending at this time. Time: 02:10 Vital Signs Vital signs: Vital Signs Temperature 98.2 F 12/02/24 23:39 Pulse Rate 63 12/02/24 23:39 Respiratory Rate 19 12/02/24 23:39 Blood Pressure 105/58 L 12/02/24 23:39 Pulse Oximetry (%) 100 12/02/24 23:39 Oxygen Delivery Method Room Air 12/02/24 23:39 [facility] Patient data External records reviewed:: [facility] previous records (Per chart review, patient was seen here on 10/20/24 for a UTI.) Clinical information provided by:: patient Social determinants that could affect healthcare access:: none Patient has the following chronic illnesses:: asthma, COPD, hypertension, hypothyroidism, s/p liver failure, recurrent UTI's, indwelling catheter since March 2024, esophageal varice, gout How is presenting disease/condition affected by chronic disease/condition?: e xacerbated by Evaluation data The following diagnostics were reviewed and interpreted by me:: lab results, radiology exam(s) and EKG tracing(s) Lab and/or radiology exams considered but not ordered:: none Interpretation Summary: CBC is normal, BUN is elevated at 22, Lipase is normal, UA is negative for a UTI, according to my interpretation. EKG done at 0029, aFib, rate of 91, left axis deviation, Q waves in V1-V3, lead III, and avF, QRS: 105, QTc: 417, no STEMI, according to my interpretation. ----- Telerad Preliminary Report Draft Patient: JIMI MILLER Record#: [id number] Birthdate: 1940 Age/Sex: 84 / F Location: [facility] Attending Dr: Ordering Physician: Date of Service: Procedure(s): Accession Number(s): cc: ~ CT scan of the pelvis without intravenous contrast (axial sections with sagittal and coronal reformats) December 03, 2024 at 0106 hours Clinical History: Suprapubic pain, bilateral mild flank pain. Comparison: CT of October 07, 2024. Findings: No evidence of bowel obstruction. The urinary bladder is nondistended, limited evaluation. Kelly catheter in place. The uterus and adnexa are normal in size and outline. There is no free fluid or free air. No evidence of significant lymphadenopathy. The distal abdominal aorta and IVC are unremarkable. Degenerative changes of the imaged portions of the spine. No acute fractures. Vascular calcifications. 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 Report Electronically Signed By: Adarsh Rendon 12/03/2024 1:56:04 AM [EST] Medications Medications considered but not ordered:: none Medication administrations:: Medication Administration History Morphine Sulfate (Morphine Sulf Inj 10 Mg/Ml Vial) 2 mg IVP Q30M PRN PRN Reason: suprapubic pain Last Admin: 12/03/24 00:18 Dose: 2 mg Documented By: VENICE Discontinued Medications Sodium Chloride (Ns) 1,000 mls @ 999 mls/hr IV .Q1H1M ONE Stop: 12/03/24 01:05 Last Infusion: 12/03/24 01:35 Dose: Infused Documented By: Admin: 12/03/24 00:19 Dose: 999 mls/hr Documented By: VENICE Acetaminophen (Ofirmev Inj) 1,000 mg in 100 mls @ 250 mls/hr IV NOW ONE Stop: 12/03/24 00:31 Last Infusion: 12/03/24 01:35 Dose: Infused Documented By: Admin: 12/03/24 00:18 Dose: 250 mls/hr Documented By: VENICE Ondansetron HCl (Ondansetron Inj 2 Mg/Ml Inj 2 Ml) 4 mg IV X1 ONE; Protocol Stop: 12/03/24 00:08 Last Admin: 12/03/24 00:18 Dose: 4 mg Documented By: VENICE see above Consultations Consultation(s) initiated? (list below): No Diagnosis Differential Diagnosis ED Complaint MDM: UTI, urinary retention, kelly catheter malfunction Most likely diagnosis given after review of the tests above:: see below Admission Indicated Admission indicated?: not indicated Explain why admission is indicated or not indicated:: Admission criteria not met. Admission Request Was there a request for admission?: No Disposition Plan Disposition Plan: Discharge Discharge Attestation Discharge Attestation: The patient and all family members were given an opportunity to ask questions and understood the discharge instructions. Discharge instructions specifically effects, indications for sooner follow up or return to the emergency department, and the expected course of current diagnosis. Patient condition: Stable Medical Decision Making MDM Narrative MDM Narrative: Scribe Attestation: 12/02/24 - June Marr am scribing for and in the presence of Dr. Ospina. Differential Diagnosis Differential Diagnosis: UTI, urinary retention, kelly catheter malfunction Lab Data 12/03/24 00:17 12/03/24 00:17 Labs: Lab Results 12/03/24 12/03/24 Range/Units 00:17 00:40 WBC 10.7 (3.6-11.0) Thou/mm3 RBC 4.62 (4.00-5.20) Miln/mm3 Hgb 12.6 (12.0-16.0) g/dL Hct 39.3 (36.0-46.0) % MCV 85 (80-100) fL MCH 27.3 (25.0-35.0) pg MCHC 32.1 (31.0-37.0) g/dl RDW Std Deviation 46.4 H (36.4-46.3) fL Plt Count 330 (140-440) Thou/mm3 Neut % (Auto) 69 (37-80) % Lymph % (Auto) 18 (10-50) % [place] % (Auto) 8 (0-12) % Eos % (Auto) 4 (0-10) % Baso % (Auto) 1 (0-2.5) % Neut # (Auto) 7.4 (1.8-7.7) Thou/mm3 Lymph # (Auto) 1.9 (1.0-4.8) Thou/mm3 [place] # (Auto) 0.9 H (0.0-0.8) Thou/mm3 Eos # (Auto) 0.4 (0.0-0.5) Thou/mm3 Baso # (Auto) 0.1 (0.0-0.2) Thou/mm3 Immature Gran # (Auto) 0.05 H (0.00-0.00) Thou/mm3 Absolute Nucleated RBC 0.00 (0.00-0.00) Thou/mm3 Immature Gran % 1 H (0-0) % Nucleated RBC % 0 (0) /100 WBC Sodium 137 (136-145) mMol/L Potassium 4.4 (3.4-5.1) mMol/L Chloride 106 (98-107) mMol/L Carbon Dioxide 22.9 (20.0-31.0) mMol/L Anion Gap 8 (7-16) BUN 13 (9-23) mg/dL Creatinine 0.6 (0.6-1.3) mg/dL Estim Creat Clear Calc 57.2 L (>60) mL/min eGFR > 60 (60 - ) See Note BUN/Creatinine Ratio 22 H (12-20) Ratio Glucose 93 (74-106) mg/dL Calculated Osmolality 273 L (275-295) Calcium 9.6 (8.3-10.6) mg/dL Corrected Calcium 9.8 (8.5-10.1) mg/dL Magnesium 1.6 (1.6-2.6) mg/dL Total Bilirubin 0.3 (0.3-1.2) mg/dL AST < 10 (0-34) U/L ALT 15 (10-49) U/L Alkaline Phosphatase 95 (46-116) U/L Total Protein 6.1 (5.7-8.2) gm/dL Albumin 3.8 (3.4-4.8) gm/dL Globulin 2.3 (2.3-3.5) gm/dL Albumin/Globulin Ratio 1.7 (1.2-2.2) Lipase 34 (12-53) U/L Ur Collection Type Catheter Urine Color Drk-Yellow A (Lt Yel-Yel) Urine Clarity Clear (Clear/Hazy) Urine pH 6.5 (5.0-7.0) Ur Specific [place] 1.019 (1.001-1.035) Urine Protein Negative (Neg - Trace) Urine Glucose (UA) Negative (Negative) Urine Ketones Negative (Negative) Urine Blood Negative (Negative) Urine Nitrite Negative (Negative) Urine Bilirubin Negative (Negative) Urine Urobilinogen (Auto) Negative (0.0-1.0) mg/dL Ur Leukocyte Esterase Negative (Negative) Urine RBC 1 (0-3) /hpf Urine WBC 4 (0-5) /hpf Ur Squamous Epith Cells 0 (0-5) /hpf Urine Bacteria 1+ A (None) Discharge Plan Plan Patient Disposition: HOME (Self Care) Disposition Comment: Stable for discharge Patient condition on transfer: Stable Prescriptions/Referrals Prescriptions/Med Rec: No Action tramadol 50 mg Tablet 50 mg PO Q8H PRN (Reason: Pain, Moderate) hydroxyzine HCl 10 mg Tablet 10 mg PO BID Hold Instructions: Resume on 06/11/24. re evaluate with PCP, unable to verify pantoprazole [Protonix] 40 mg tablet,delayed release (DR/EC) 20 mg PO QDAY (DME) spirometers and accessories Device See Rx Instructions .Route Qty: 1 0RF Rx Instructions: As directed prednisone 5 mg tablet 5 mg PO QDAY Patient Comments: TAKE 1 TABLET BY MOUTH EVERY DAY FOR 30 DAYS allopurinol 100 mg tablet 100 mg PO DAILY Patient Comments: TAKE 1 TABLET TWICE A DAY BY ORAL ROUTE FOR 90 DAYS. metoprolol tartrate 25 mg tablet 25 mg PO BID Hold Instructions: Resume on 08/17/24. Unable to verify if patient is taking medication. Follow up with PCP Patient Comments: TAKE 1 TABLET BY MOUTH TWICE A DAY folic acid 1 mg Tablet 1 mg PO DAILY levothyroxine 50 mcg Capsule 50 mcg PO DAILY potassium chloride 20 mEq Tablet Extended Release 20 meq PO QDAY Hold Instructions: Resume on 06/10/24. re evaluate with PCP, unable to verify phenazopyridine [Pyridium] 100 mg tablet 100 mg PO TID PRN (Reason: pain) Qty: 6 0RF Referrals: Mireya Pagan FNP [Primary Care Provider] - In 1 week Problem List Clinical Impression: Chronic indwelling Kelly catheter, Encounter for Kelly catheter replacement Patient/Caregiver Discharge Instructions Discharge Activity: activity as tolerated Education Materials: ED Kelly Catheter, Care Additional Instructions: Please return to the emergency department if you are not improving within 48 hours or if you are worsening in any way and we will take care of you Otherwise you should follow-up with your primary care doctor and your urologist within the next several days. We tested your urine today and you do not have a urinary tract infection. However you are quite dehydrated. You should drink plenty of fluids, including but not limited to water, Gatorade, Pedialyte, chicken no soup and the like. Your blood work showed no evidence of kidney problems and no evidence of infection. Print Language: Setswana Stand Alone Forms: Sonja Award Info., Patient Portal Info Letter
[2024-12-03 00:05] VITALS: PULSE 87; PULSE 88; RESP 19; O2SAT 98; BMI 22.8
--- NOTE | 2024-12-03 00:05 | XR_ITS ---
Examination: CT pelvis without intravenous contrast. 2-D sagittal and coronal reconstructions. Date and time of exam:December 03, 2024 0106 hrs. Comparison October 07, 2024 Indications: Onset abdominal pain suprapubic pain, bilateral flank pain today, history indwelling catheter, history severe gout with gouty crystals in the urine, history fluid distended small bowel loops, large amounts of stool in the rectum, proctitis pattern on CT abdomen pelvis October 07, 2024 CTDI: vol (mGy) :5.47 DLP: (mGycm) : 223 Technique: Multiple 3 mm axial sections of the pelvis have been obtained with the 64 slice high resolution scanner. 2-D sagittal and coronal reconstructions. Low dose protocols were performed. One or more of the following dose reduction techniques were used; automated exposure control, adjustment of the mA and/or KV according to patient size, use of iterative reconstruction technique. Findings: Liver is mildly irregular in contour, no focal liver lesions Gallbladder is distended no definite stones Spleen is not enlarged Small pancreatic calcifications 8 mm likely proteinaceous lateral right renal cyst No renal or ureteral calculi, no hydronephrosis Abdominal aortic calcification no aneurysmal dilatation No pericecal inflammatory change No bowel obstruction No diverticulitis Partially retroverted atrophic uterus Large amounts of air and stool in the rectum with thickening of the rectal wall Urinary Saini catheter in contracted urinary bladder Advanced diffuse lumbar degenerative disc disease Moderate narrowing hip joints Impression: Suspect primary hepatocellular disease Distended gallbladder, recommend repeat gallbladder sonogram follow-up No CT findings of appendicitis or bowel obstruction Large amounts of air and stool in the rectum with thickening the rectal wall, differential would include proctitis
--- NOTE | 2024-12-03 00:15 | PC.NURSE ---
PT BIBA WITH C/O LOWER ABD PAIN X MONTHS BUT STATES WORSEN APPROX 8 PM. PT PRESENTS TO ER WITH CARDONA CATHETER IN PLACE. PT STATES SHE HAS RECURRING UTI'S AND IS CURRENTLY TAKING ABX (CEFDINIR 300MG PO BID) 10 DAY COURSE AND IS ON HER 7TH DAY. PT ALSO STATES SHE HAS CRYSTALS IN HER URINE THAT APPEAR TO BE GETTING STUCK REQUIRING HER TO CHANGE CARDONA MORE FREQUENTLY. PT STATES SHE NEEDS CARDONA CHANGE SHE BELIEVES THAT IS WAS CAUSING HER PAIN TODAY. ON ARRIVAL PT HAS APPROX 400ML OUTPUT IN CARDONA BAG. CARDONA REMOVED AND ORDERS TO REPLACE CARDONA GIVEN BY MD NEWELL. PT UPDATED ON PLAN OF CARE. NEW ORDERS IN PLACE BY . PT CARE ONGOING AT THIS TIME.
[2024-12-03] MEDS: ONDANSETRON INJ 2 MG/ML INJ 2 ML 4 MG IV (00:18)
[2024-12-03] MEDS: ACETAMINOPHEN IVPB 1,000 MG/100 ML VIAL 250 MG IV (00:18)
[2024-12-03] MEDS: MORPHINE SULF INJ 10 MG/ML VIAL 2 MG IVP (00:18)
[2024-12-03] MEDS: SODIUM CHLORIDE 0.9% 1000 ML 1,000 ML 999 ML IV (00:19)
[2024-12-03 00:38] LABS: Basophils # (Auto) 0.1 Thou/mm3 (0.0-0.2); Basophils % (Auto) 1 % (0-2.5); Eosinophils # (Auto) 0.4 Thou/mm3 (0.0-0.5); Eosinophils % (Auto) 4 % (0-10); Hematocrit 39.3 % (36.0-46.0); Hemoglobin 12.6 g/dL (12.0-16.0); Immature Granulocytes % (Auto) 1 % (0-0); Immature Granulocytes Auto 0.05 Thou/mm3 (0.00-0.00); Lymphocytes # (Auto) 1.9 Thou/mm3 (1.0-4.8); Lymphocytes % (Auto) 18 % (10-50); Mean Corpuscular HGB Conc 32.1 g/dl (31.0-37.0); Mean Corpuscular Hemoglobin 27.3 pg (25.0-35.0); Mean Corpuscular Volume 85 fL (80-100); Monocytes # (Auto) 0.9 Thou/mm3 (0.0-0.8); Monocytes % (Auto) 8 % (0-12); Neutrophils # (Auto) 7.4 Thou/mm3 (1.8-7.7); Neutrophils % (Auto) 69 % (37-80); Nucleated Red Blood Cell % 0 /100 WBC (0); Platelet Count 330 Thou/mm3 (140-440); RDW Standard Deviation 46.4 fL (36.4-46.3); Red Blood Count 4.62 Miln/mm3 (4.00-5.20); White Blood Count 10.7 Thou/mm3 (3.6-11.0)
[2024-12-03 00:42] VITALS: BP 111/60; PULSE 87; RESP 18; O2SAT 98
[2024-12-03 00:57] LABS: Collection Type, Urine Catheter; Squamous Epithelial Cell,Urine 0 /hpf (0-5)
[2024-12-03 01:13] LABS: Alanine Aminotransferase 15 U/L (10-49); Albumin, Serum 3.8 gm/dL (3.4-4.8); Albumin/Globulin Ratio 1.7 (1.2-2.2); Alkaline Phosphatase 95 U/L (46-116); Anion Gap 8 (7-16); Aspartate Amino Transferase < 10 U/L (0-34); BUN/Creatinine Ratio 22 Ratio (12-20); Bilirubin,Total 0.3 mg/dL (0.3-1.2); Blood Urea Nitrogen 13 mg/dL (9-23); Calcium 9.6 mg/dL (8.3-10.6); Calcium (Corrected) 9.8 mg/dL (8.5-10.1); Carbon Dioxide 22.9 mMol/L (20.0-31.0); Chloride 106 mMol/L (98-107); Creatinine (Component) 0.6 mg/dL (0.6-1.3); Estimated Creatinine Clearance 57.2 mL/min (>60); Globulin 2.3 gm/dL (2.3-3.5); Glucose 93 mg/dL (74-106); Lipase 34 U/L (12-53); Magnesium 1.6 mg/dL (1.6-2.6); Osmolality,Calculated 273 (275-295); Potassium 4.4 mMol/L (3.4-5.1); Sodium 137 mMol/L (136-145); Total Protein 6.1 gm/dL (5.7-8.2); eGFR > 60 See Note
--- NOTE | 2024-12-03 01:56 | PRELIM_ITS ---
CT scan of the pelvis without intravenous contrast (axial sections with sagittal and coronal reformat s) December 03, 2024 at 0106 hours Clinical History: Suprapubic pain, bilateral mild flank pain.Compar teresa: CT of October 07, 2024.Findings:No evidence of bowel obstruction.The urinary bladder is nondis tended, limited evaluation. Saini catheter in place. The uterus and adnexa are normal in size and out line. There is no free fluid or free air.No evidence of significant lymphadenopathy. The distal abdom inal aorta and IVC are unremarkable.Degenerative changes of the imaged portions of the spine. 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 Report Electronically Signed By: Hoda Rendon 12/03/2024 1:56:04 AM [EST]
[2024-12-03 02:24] LABS: Bacteria,Urine 1+; Bilirubin,Urine Negative (Negative); Blood,Urine Negative (Negative); Clarity,Urine Clear (Clear/Hazy); Color,Urine Drk-Yellow (Lt Yel-Yel); Glucose, Urine Negative (Negative); Ketones,Urine Negative (Negative); Leukocyte Esterase,Urine Negative (Negative); Nitrite,Urine Negative (Negative); PH,Urine 6.5 (5.0-7.0); Protein,Urine Negative (Neg - Trace); RBC,Urine 1 /hpf (0-3); Specific Gravity,Urine 1.019 (1.001-1.035); Urobilinogen,Urine Negative mg/dL (0.0-1.0); WBC,Urine 4 /hpf (0-5)
[2024-12-03 04:02] VITALS: BP 123/70; PULSE 92; RESP 18; TEMP 36.8; O2SAT 98
== END 2024-12-03 04:21 | disposition home or self-care (01) ==
PROVIDERS: Emergency Provider Emergency Medicine; PCP Nurse Practitioner
DX: Z46.6 Encounter for fitting and adjustment of urinary device (principal); K56.41 Fecal impaction; I48.91 Unspecified atrial fibrillation; I10 Essential (primary) hypertension
CPT/HCPCS: 51702; 36415; 72192; 80053; 81001; 83690; 83735; 85025; 87077; 87086; 87186; 93005; 96365; 96375; 99284; J0131; J2270; J2405; J7030

== ENCOUNTER → 2024-12-04 | Outpatient (CLI) | payer MEDICARE, BC, SELFPAY ==
[2024-12-04 12:52] LABS: Collection Type, Urine Clean Catch
[2024-12-04 13:50] LABS: Bilirubin,Urine Negative (Negative); Blood,Urine Negative (Negative); Clarity,Urine Clear (Clear/Hazy); Color,Urine Lt-Yellow (Lt Yel-Yel); Glucose, Urine Negative (Negative); Ketones,Urine Negative (Negative); Leukocyte Esterase,Urine Positive (Negative); Nitrite,Urine Negative (Negative); Protein,Urine Trace (Neg - Trace); RBC,Urine 2 /hpf (0-3); Specific Gravity,Urine 1.014 (1.001-1.035); Squamous Epithelial Cell,Urine < 1 /hpf (0-5); Urobilinogen,Urine Negative mg/dL (0.0-1.0); WBC,Urine 11 /hpf (0-5)
[2024-12-04 13:59] LABS: Culture Indicated,Urine Yes
[2024-12-04 14:04] LABS: Alanine Aminotransferase 16 U/L (10-49); Albumin, Serum 3.4 gm/dL (3.4-4.8); Albumin/Globulin Ratio 1.7 (1.2-2.2); Alkaline Phosphatase 89 U/L (46-116); Anion Gap 8 (7-16); BUN/Creatinine Ratio 24 Ratio (12-20); Bilirubin,Total 0.3 mg/dL (0.3-1.2); Blood Urea Nitrogen 12 mg/dL (9-23); Calcium 9.4 mg/dL (8.3-10.6); Calcium (Corrected) 9.9 mg/dL (8.5-10.1); Carbon Dioxide 25.1 mMol/L (20.0-31.0); Chloride 106 mMol/L (98-107); Creatinine (Component) 0.5 mg/dL (0.6-1.3); Glucose 71 mg/dL (74-106); Osmolality,Calculated 275 (275-295); Potassium 4.1 mMol/L (3.4-5.1); Sodium 139 mMol/L (136-145); Total Protein 5.4 gm/dL (5.7-8.2); eGFR > 60 See Note
[2024-12-04 14:16] LABS: Aspartate Amino Transferase < 8 U/L (0-34)
== END | disposition home or self-care (01) ==
LOC: SLDO 12:06
PROVIDERS: PCP Nurse Practitioner; Referring Provider Nurse Practitioner; Visit Provider Nurse Practitioner
DX: N30.20 Other chronic cystitis without hematuria (principal); E87.6 Hypokalemia
CPT/HCPCS: 36415; 80053; 81001; 87086

== ENCOUNTER → 2024-12-20 | Outpatient (CLI) | payer MEDICARE, BC, SELFPAY ==
[2024-12-20 12:00] LABS: Collection Type, Urine Clean Catch; Squamous Epithelial Cell,Urine 0 /hpf (0-5)
[2024-12-20 12:33] LABS: Amorphous Crystals,Urine Present (Absent); Bilirubin,Urine Negative (Negative); Blood,Urine Negative (Negative); Clarity,Urine Turbid (Clear/Hazy); Color,Urine Yellow (Lt Yel-Yel); Glucose, Urine Negative (Negative); Ketones,Urine Negative (Negative); Leukocyte Esterase,Urine Positive (Negative); Nitrite,Urine Positive (Negative); PH,Urine 7.5 (5.0-7.0); Protein,Urine Trace (Neg - Trace); RBC,Urine 2 /hpf (0-3); Specific Gravity,Urine 1.016 (1.001-1.035); Urobilinogen,Urine Negative mg/dL (0.0-1.0); WBC,Urine 252 /hpf (0-5)
== END | disposition home or self-care (01) ==
LOC: SLDO 11:39
PROVIDERS: PCP Family Medicine; Referring Provider Family Medicine; Visit Provider Family Medicine
DX: N30.20 Other chronic cystitis without hematuria (principal); N18.9 Chronic kidney disease, unspecified
CPT/HCPCS: 81001

== ENCOUNTER → 2025-05-04 | Outpatient (CLI) | payer MEDICARE, BC, SELFPAY ==
[2025-05-04 12:46] LABS: Glucose Estimated Average 100 mg/dL (80-131); Hemoglobin A1C 5.1 % Hgb (4.8-6.0)
[2025-05-04 13:00] LABS: Alanine Aminotransferase 22 U/L (10-49); Albumin, Serum 3.2 gm/dL (3.4-4.8); Albumin/Globulin Ratio 1.5 (1.2-2.2); Alkaline Phosphatase 97 U/L (46-116); Anion Gap 9 (7-16); BUN/Creatinine Ratio 27 Ratio (12-20); Bilirubin,Total 0.5 mg/dL (0.3-1.2); Blood Urea Nitrogen 16 mg/dL (9-23); Calcium (Corrected) 9.6 mg/dL (8.5-10.1); Chloride 107 mMol/L (98-107); Creatinine (Component) 0.6 mg/dL (0.6-1.3); Globulin 2.1 gm/dL (2.3-3.5); Glucose 82 mg/dL (74-106); Osmolality,Calculated 288 (275-295); Potassium 4.5 mMol/L (3.4-5.1); Sodium 145 mMol/L (136-145); Total Protein 5.3 gm/dL (5.7-8.2); Uric Acid 5.1 mg/dL (3.1-7.8); eGFR > 60 See Note
[2025-05-04 13:01] LABS: Iron 33 mcg/dL (50-170); Percent Iron Saturation 17 % (20-55); Total Iron Binding Capacity 184 mcg/dL (250-425); Unsaturated Iron Binding 151 (225-295)
[2025-05-04 13:02] LABS: Basophils # (Auto) 0.1 Thou/mm3 (0.0-0.2); Basophils % (Auto) 1 % (0-2.5); Eosinophils # (Auto) 0.4 Thou/mm3 (0.0-0.5); Eosinophils % (Auto) 4 % (0-10); Hematocrit 38.4 % (36.0-46.0); Immature Granulocytes % (Auto) 0 % (0-0); Immature Granulocytes Auto 0.04 Thou/mm3 (0.00-0.00); Lymphocytes % (Auto) 19 % (10-50); Mean Corpuscular HGB Conc 31.3 g/dl (31.0-37.0); Mean Corpuscular Volume 86 fL (80-100); Monocytes # (Auto) 0.7 Thou/mm3 (0.0-0.8); Monocytes % (Auto) 7 % (0-12); Neutrophils # (Auto) 7.1 Thou/mm3 (1.8-7.7); Neutrophils % (Auto) 69 % (37-80); Nucleated Red Blood Cell % 0 /100 WBC (0); Platelet Count 413 Thou/mm3 (140-440); RDW Standard Deviation 50.4 fL (36.4-46.3); Red Blood Count 4.45 Miln/mm3 (4.00-5.20); White Blood Count 10.3 Thou/mm3 (3.6-11.0)
[2025-05-10 07:07] LABS: T3,Total* 66 ng/dL (76-181)
== END | disposition home or self-care (01) ==
LOC: SLDO 11:37
PROVIDERS: PCP Nurse Practitioner; Referring Provider Nurse Practitioner; Visit Provider Nurse Practitioner
DX: R73.09 Other abnormal glucose (principal); E87.6 Hypokalemia; I13.0 Hypertensive heart and chronic kidney disease with heart failure and stage 1 through stage 4 chronic kidney disease, or unspecified chronic kidney disease; N18.9 Chronic kidney disease, unspecified; M10.09 Idiopathic gout, multiple sites; E61.1 Iron deficiency; E03.9 Hypothyroidism, unspecified
CPT/HCPCS: 36415; 80053; 83036; 83540; 83550; 84480; 84550; 85025

== ENCOUNTER 2025-08-25 11:04 | Emergency (ER) | payer MEDICARE, BC, SELFPAY ==
[2025-08-25] VITALS (8 sets, daily range): BP systolic 99–127; BP diastolic 59–85; PULSE 82–163; RESP 14–17; TEMP 36.4–36.8; O2SAT 94–99; BMI 23.9
--- NOTE | 2025-08-25 11:12 | EKG_ITS ---
[facility] Test Date: 2025-08-25 Pat Name: JIMI MILLER Department: Room: - Gender: Female Public Relations Player: : 1940 Requested By: Rosalee Kothari Order Number: [id number] Reading MD: Rosalee Kothari Measurements Intervals [place] Rate: 108 P: 33 OR: 164 QRS: -37 QRSD: 109 T: 84 QT: 321 QTc: 432 Interpretive Statements SINUS TACHYCARDIA WITH OCCASIONAL SUPRAVENTRICULAR PREMATURE COMPLEXES POSSIBLE LEFT ATRIAL ENLARGEMENT [-0.1mV P-WAVE IN V1/V2] LEFT AXIS DEVIATION [QRS AXIS < -30] LEFT VENTRICULAR HYPERTROPHY AND ST-T CHANGE [VOLTAGE CRITERIA PLUS ST/T ABNORMALITY] Compared to ECG 05/15/2024 16:59:28 Left ventricular hypertrophy now present ST (T wave) deviation now present Supraventricular rhythm no longer present Myocardial infarct finding no longer present T-wave abnormality no longer present Possible ischemia no longer present /store/S0/[id number].pdf
--- NOTE | 2025-08-25 11:23 | EKG_ITS ---
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1940 Requested By: Nicole Rivero Order Number: [id number] Reading MD: Nicole Rivero Measurements Intervals [place] Rate: 163 P: [place]: QRS: -38 QRSD: 106 T: 128 QT: 288 QTc: 474 Interpretive Statements ATRIAL FIBRILLATION WITH RAPID VENTRICULAR RESPONSE SEPTAL MYOCARDIAL INFARCTION , OF INDETERMINATE AGE [40+ ms Q WAVE IN V1/V2] INFERIOR MYOCARDIAL INFARCTION , PROBABLY OLD [40+ ms Q WAVE AND/OR ST/T ABNORMALITY IN II/aVF] MODERATE T-WAVE ABNORMALITY, CONSIDER LATERAL ISCHEMIA [-0.1+ mV T-WAVE IN I/aVL/V5/V6] CRITICAL TEST RESULT Compared to ECG 08/25/2025 11:19:04 Myocardial infarct finding now present T-wave abnormality now present Possible ischemia now present Sinus tachycardia no longer present Left-axis deviation no longer present Left ventricular hypertrophy no longer present ST (T wave) deviation no longer present /store/S0/[id number]/[id number].pdf
--- NOTE | 2025-08-25 11:26 | XR_ITS ---
Examination: AP chest single view Technique one AP portable upright chest single view Date and time: August 25, 2025, 12:20 PM, comparison 08/08/2024 INDICATIONS: Onset hypertension today. FINDINGS: Mild prominence left ventricle Ectatic thoracic aorta. Accentuation of the interstitial markings at the lung bases Mild to moderate elevation left hemidiaphragm No lobar pneumonia or pulmonary edema IMPRESSION: Basilar bronchitis pattern
--- NOTE | 2025-08-25 11:28 | PD.EDARRY ---
ED Arrhythmia Palp. RME/HPI General Chief Complaint: Arrhythmia/Palpitations Stated Complaint: PALPITATIONS Time Seen by Provider: 08/25/25 11:17 Arrival date/time: 08/25/25 11:04 RME / HPI RME / HPI narrative: 85-year-old female patient with significant history of hypertension, hypothyroidism, recent diagnosis of A-fib, about 2 weeks ago, came in for evaluation regarding on and off palpitation. Has been having on and off palpitation for the last few days, getting worse this morning, patient described it as heart is racing lasting for several seconds. Patient denies any chest pain . Patient had 2D echo done few days ago by Dr. Felton Garza and pending results. She was prescribed Eliquis 2.5 mg however patient have not started the medication yet. She was prescribed metoprolol to tartrate, 25 mg twice daily however she is only taking half tablet twice a day due to hypotension. Denies any other complaints. No fever no abdominal pain no diarrhea no constipation. Related Data Home Medications ?Medication ?Instructions ?Recorded ?Confirmed hydroxyzine HCl 10 mg tablet 10 mg PO BID Anxiety 04/18/24 10/07/24 pantoprazole 40 mg tablet,delayed 20 mg PO QDAY Gastric Reflux 04/18/24 10/07/24 release (Protonix) tramadol 50 mg tablet 50 mg PO Q8H PRN Pain, Moderate 04/18/24 10/07/24 potassium chloride 20 mEq 20 meq PO QDAY 05/16/24 10/07/24 tablet,extended release Held on 05/18/24. Instructions: Resume on 06/10/24. re evaluate with PCP, unable to verify allopurinol 100 mg tablet 100 mg PO DAILY 08/09/24 10/07/24 metoprolol tartrate 25 mg tablet 25 mg PO BID 08/09/24 10/07/24 Held on 08/09/24. Instructions: Resume on 08/17/24. Unable to verify if patient is taking medication. Follow up with PCP prednisone 5 mg tablet 5 mg PO QDAY 08/09/24 10/07/24 folic acid 1 mg tablet 1 mg PO DAILY 08/10/24 10/07/24 levothyroxine 50 mcg capsule 50 mcg PO DAILY 08/10/24 10/07/24 Previous Rx's ?Medication ?Instructions ?Recorded spirometers and accessories #1 ea 04/23/24 phenazopyridine 100 mg tablet 100 mg PO TID PRN pain 6 doses #6 10/20/24 (Pyridium) tabs diltiazem HCl 240 mg capsule,24 240 mg PO QAM #30 caps 08/25/25 hr,extended release (Tiazac) Allergies Allergy/AdvReac Type Severity Reaction Status Date / Time ciprofloxacin (From Cipro) Allergy Severe Redness of Verified 08/25/25 11:07 Skin doxycycline Allergy Severe Hives Verified 08/25/25 11:07 moxifloxacin (From Avelox) Allergy Severe Dizziness Verified 08/25/25 11:07 Penicillins Allergy Severe Hives Verified 08/25/25 11:07 tetracycline Allergy Severe Hives Verified 08/25/25 11:07 colchicine Allergy Verified 08/25/25 11:07 levofloxacin (From Levaquin) Allergy Verified 08/25/25 11:07 ibuprofen AdvReac Mild Nausea Verified 08/25/25 11:07 Review of Systems Review of Systems Narrative Review of Systems: Review of system reviewed and within normal limits except mentioned in HPI ED Exam Narrative Physical exam: VITAL SIGNS: Reviewed. GENERAL APPEARANCE: Alert and interactive, follows commands, no acute distress, HEAD AND FACE: Non-traumatic. ENT: PERRL, pink conjunctivitis, eyelid no trauma, Mucous membrane moist. NECK: Supple, nontender, no nuchal rigidity. CHEST: No tenderness, no crepitus, no paradoxical movement, no retractions. LUNGS: Clear, well ventilated, symmetric, no rales, no wheezing, no ronchi, no stridor, good breath sounds bilaterally. HEART: Regular rate, regular rhythm, no murmur, no gallops. ABDOMEN: Soft, positive bowel sounds, nondistended, no guarding, nontender, no rebound, no masses, RECTAL: Deferred. GENITAL: Deferred. NEUROLOGICAL: Gross motor function intact sensory function intact, Appropriate for age. MUSCULOSKELETAL: low back nontender, full range of motion. EXTREMITIES: Nontender, full range of motion. SKIN: Color pink, dry, no rash, no lacerations, no abrasions, no contusions. LYMPHATICS: Deferred. Course Quality Measures none Orders Category Date Time Status EKG (ED ONLY) *Do not use* NOW Care 08/25/25 11:12 Completed EKG (ED ONLY) *Do not use* NOW Care 08/25/25 11:23 Completed EKG (ED Only) Stat Exams 08/25/25 11:12 Draft EKG (ED Only) Stat Exams 08/25/25 11:23 Draft XR chest 1V Stat Exams 08/25/25 11:26 Ordered B-Type Natriuretic Peptide Stat Lab 08/25/25 11:26 Ordered CBC Stat Lab 08/25/25 11:26 Ordered Comprehensive Metabolic Panel Stat Lab 08/25/25 11:26 Ordered Magnesium Stat Lab 08/25/25 11:26 Ordered Partial Thromboplastin Time Stat Lab 08/25/25 11:26 Ordered Prothrombin Time with INR Stat Lab 08/25/25 11:26 Ordered Troponin I Stat Lab 08/25/25 11:26 Ordered Urinalysis, C/S if Indicated Stat Lab 08/25/25 11:26 Ordered Nitroglycerin [Nitrostat 1/150] Med 08/25/25 11:26 Ordered 0.4 mg SL [id number] PRN Ringers Lactated 1000 ml [Lactated Ringers] 1,000 ml Med 08/25/25 11:26 Ordered IV 999 mls/hr Vital Signs Vital signs: Vital Signs Temperature 98.3 F 08/25/25 11:08 Pulse Rate 114 H 08/25/25 11:08 Respiratory Rate 16 08/25/25 11:08 Blood Pressure 111/59 L 08/25/25 11:08 Pulse Oximetry (%) 94 L 08/25/25 11:08 Oxygen Delivery Method Room Air 08/25/25 11:08 Arrhythmia/Palpitations MDM Narrative MDM Narrative:: 85-year-old female patient with significant history of hypertension, hypothyroidism, recent diagnosis of A-fib, about 2 weeks ago, came in for evaluation regarding on and off palpitation. Has been having on and off palpitation for the last few days, getting worse this morning, patient described it as heart is racing lasting for several seconds. Patient denies any chest pain . Patient had 2D echo done few days ago by Dr. Felton Garza and pending results. She was prescribed Eliquis 2.5 mg however patient have not started the medication yet. She was prescribed metoprolol to tartrate, 25 mg twice daily however she is only taking half tablet twice a day due to hypotension. Denies any other complaints. No fever no abdominal pain no diarrhea no constipation. EKG initially was noted to be atrial fibrillation with RVR, ventricular rate of [address] segment elevation or depression noted. Repeat EKG showed A-fib, with ventricular rate of 108 bpm, no ST segment elevation or depression noted. Patient was given IV fluids, was also given a dose of diltiazem 20 mg IV x 1. Urinalysis showed positive leukocyte esterase however we will start the patient on antibiotic since patient is not having any symptoms of UTI we will wait for the culture and sensitivity results. Spoke with Dr. Garza, accountant bookkeeper of this patient, and told me to stop metoprolol and start patient on Cardizem 240 mg ER daily and follow-up in the clinic this Saturday. Patient is to start taking her Eliquis also. Stable for discharge home having a heart rate of 88 prior to discharge. With no symptoms. Patient data External records reviewed:: None Clinical information provided by:: patient Social determinants that could affect healthcare access:: none Patient has the following chronic illnesses:: Chronic A-fib hypertension How is presenting disease/condition affected by chronic disease/condition?: exacerbated by Evaluation data The following diagnostics were reviewed and interpreted by me:: lab results and radiology exam(s) Lab and/or radiology exams considered but not ordered:: None Interpretation Summary: See results MDM Medications / Prescriptions Medications or Prescriptions considered but not ordered:: None Medication administrations:: Medication Administration History Lactated Ringer's (Lactated Ringers) 1,000 mls @ 999 mls/hr IV .Q1H1M ONE Stop: 08/25/25 12:26 Nitroglycerin (Nitroglycerin 0.4 Mg Subl Btl #25) 0.4 mg SL [id number] PRN PRN Reason: CHEST PAIN Stop: 09/24/25 11:25 Consultations Consultation(s) initiated? (list below): No Diagnosis Differential diagnosis arrhythmia/palpitations: palpitations, anxiety and artial fibrillation Most likely diagnosis given after review of the tests above:: Chronic atrial fibrillation Admission Indicated Admission indicated?: not indicated Admission Request Was there a request for admission?: No Disposition Plan Disposition Plan: Discharge Discharge Attestation Discharge Attestation: The patient and all family members were given an opportunity to ask questions and understood the discharge instructions. Discharge instructions specifically effects, indications for sooner follow up or return to the emergency department, and the expected course of current diagnosis. Patient condition: Stable Discharge Plan Plan Patient Disposition: HOME (Self Care) Discharge Disposition comment: Stable Prescriptions/Referrals Prescriptions/Med Rec: New diltiazem HCl [Tiazac] 240 mg capsule,extended release 24 hr 240 mg PO QAM Qty: 30 0RF No Action tramadol 50 mg Tablet 50 mg PO Q8H PRN (Reason: Pain, Moderate) hydroxyzine HCl 10 mg Tablet 10 mg PO BID pantoprazole [Protonix] 40 mg tablet,delayed release (DR/EC) 20 mg PO QDAY (DME) spirometers and accessories Device See Rx Instructions .Route Qty: 1 0RF Rx Instructions: As directed prednisone 5 mg tablet 5 mg PO QDAY Patient Comments: TAKE 1 TABLET BY MOUTH EVERY DAY FOR 30 DAYS allopurinol 100 mg tablet 100 mg PO DAILY Patient Comments: TAKE 1 TABLET TWICE A DAY BY ORAL ROUTE FOR 90 DAYS. metoprolol tartrate 25 mg tablet 25 mg PO BID Patient Comments: TAKE 1 TABLET BY MOUTH TWICE A DAY folic acid 1 mg Tablet 1 mg PO DAILY levothyroxine 50 mcg Capsule 50 mcg PO DAILY potassium chloride 20 mEq Tablet Extended Release 20 meq PO QDAY phenazopyridine [Pyridium] 100 mg tablet 100 mg PO TID PRN (Reason: pain) Qty: 6 0RF Referrals: No Primary/Family,Physician [Primary Care Provider] - In 1 week Problem List Clinical Impression: Chronic a-fib Patient/Caregiver Discharge Instructions Discharge Activity: activity as tolerated Education Materials: ED Atrial Fibrillation Additional Instructions: Thank you for the opportunity for serving you today. You are stable for discharged . You are advised to: Follow-up with your accountant bookkeeper in 1 to 2 days Return to ED for worsening of symptoms Increase oral fluids Take medication as prescribed Please start taking your Eliquis Stop taking your metoprolol Print Language: Danish Stand Alone Forms: Sonja Award Info., Patient Portal Info Letter PA/LORRI Supervising Physician HONEY/LORRI Supervising Physician: MD Ji
[2025-08-25] MEDS: RINGERS LACTATED 1000 ML 1,000 ML 999 ML IV (11:36)
[2025-08-25] MEDS: DILTIAZEM INJ 5 MG/ML VIAL 5 ML 20 MG IV (11:40)
[2025-08-25 11:53] LABS: Basophils # (Auto) 0.1 Thou/mm3 (0.0-0.2); Basophils % (Auto) 1 % (0-2.5); Eosinophils # (Auto) 0.4 Thou/mm3 (0.0-0.5); Eosinophils % (Auto) 3 % (0-10); Hematocrit 45.7 % (36.0-46.0); Hemoglobin 14.5 g/dL (12.0-16.0); Immature Granulocytes Auto 0.06 Thou/mm3 (0.00-0.00); Lymphocytes # (Auto) 2.0 Thou/mm3 (1.0-4.8); Lymphocytes % (Auto) 15 % (10-50); Mean Corpuscular HGB Conc 31.7 g/dl (31.0-37.0); Mean Corpuscular Hemoglobin 28.7 pg (25.0-35.0); Mean Corpuscular Volume 90 fL (80-100); Monocytes # (Auto) 0.8 Thou/mm3 (0.0-0.8); Monocytes % (Auto) 6 % (0-12); Neutrophils # (Auto) 9.7 Thou/mm3 (1.8-7.7); Neutrophils % (Auto) 75 % (37-80); Nucleated Red Blood Cell # 0.00 Thou/mm3 (0.00-0.00); Nucleated Red Blood Cell % 0 /100 WBC (0); Platelet Count 234 Thou/mm3 (140-440); RDW Standard Deviation 49.2 fL (36.4-46.3); Red Blood Count 5.06 Miln/mm3 (4.00-5.20); White Blood Count 12.9 Thou/mm3 (3.6-11.0)
[2025-08-25 12:11] LABS: INR 1.0 (0.9-1.3); Partial Thromboplastin Time 25.3 Seconds (22.0-36.0); Prothrombin Time 10.9 Seconds (9.0-12.2)
[2025-08-25 12:12] LABS: Alanine Aminotransferase 26 U/L (10-49); Albumin, Serum 3.7 gm/dL (3.4-4.8); Albumin/Globulin Ratio 1.8 (1.2-2.2); Alkaline Phosphatase 75 U/L (46-116); Anion Gap 11 (7-16); Aspartate Amino Transferase 24 U/L (0-34); BUN/Creatinine Ratio 19 Ratio (12-20); Bilirubin,Total 0.5 mg/dL (0.3-1.2); Blood Urea Nitrogen 15 mg/dL (9-23); Calcium 9.4 mg/dL (8.3-10.6); Calcium (Corrected) 9.6 mg/dL (8.5-10.1); Carbon Dioxide 26.5 mMol/L (20.0-31.0); Chloride 108 mMol/L (98-107); Creatinine (Component) 0.8 mg/dL (0.6-1.3); Estimated Creatinine Clearance 44.1 mL/min (>60); Globulin 2.1 gm/dL (2.3-3.5); Glucose 128 mg/dL (74-106); Magnesium 1.8 mg/dL (1.6-2.6); Osmolality,Calculated 291 (275-295); Potassium 3.5 mMol/L (3.4-5.1); Sodium 145 mMol/L (136-145); Total Protein 5.8 gm/dL (5.7-8.2); Troponin I < 0.020 ng/mL (0.0-0.045); eGFR > 60 See Note
[2025-08-25 12:18] LABS: B-Type Natriuretic Peptide 205 pg/mL (0-100)
[2025-08-25 12:42] LABS: Collection Type, Urine Clean Catch
[2025-08-25 12:54] LABS: Bacteria,Urine 2+; Bilirubin,Urine Negative (Negative); Blood,Urine Negative (Negative); Color,Urine Lt-Yellow (Lt Yel-Yel); Culture Indicated,Urine Yes; Glucose, Urine Negative (Negative); Ketones,Urine Negative (Negative); Leukocyte Esterase,Urine Positive (Negative); Nitrite,Urine Negative (Negative); PH,Urine 6.5 (5.0-7.0); Protein,Urine Negative (Neg - Trace); RBC,Urine 5 /hpf (0-3); Specific Gravity,Urine 1.010 (1.001-1.035); Squamous Epithelial Cell,Urine 2 /hpf (0-5); Urobilinogen,Urine Negative mg/dL (0.0-1.0); WBC,Urine 5 /hpf (0-5)
[2025-08-25 12:55] LABS: Clarity,Urine Hazy (Clear/Hazy)
[2025-08-25] MEDS: SODIUM CHLORIDE 0.9% 500 ML 500 ML 999 ML IV (13:34)
== END 2025-08-25 14:13 | disposition home or self-care (01) ==
PROVIDERS: Nurse Practitioner Family; Emergency Provider Family Medicine
DX: I48.20 Chronic atrial fibrillation, unspecified (principal); I10 Essential (primary) hypertension; E03.9 Hypothyroidism, unspecified
CPT/HCPCS: 36415; 71045; 80053; 81001; 83735; 83880; 84484; 85025; 85610; 85730; 87077; 87086; 87186; 93005; 96360; 99284; J3490; J7120; J7999

== ENCOUNTER → 2025-11-23 | Outpatient (CLI) | payer MEDICARE, BC, SELFPAY ==
[2025-11-23 11:30] LABS: Basophils # (Auto) 0.1 Thou/mm3 (0.0-0.2); Basophils % (Auto) 1 % (0-2.5); Eosinophils # (Auto) 0.5 Thou/mm3 (0.0-0.5); Eosinophils % (Auto) 5 % (0-10); Hematocrit 46.8 % (36.0-46.0); Hemoglobin 14.8 g/dL (12.0-16.0); Immature Granulocytes Auto 0.04 Thou/mm3 (0.00-0.00); Lymphocytes # (Auto) 1.6 Thou/mm3 (1.0-4.8); Lymphocytes % (Auto) 16 % (10-50); Mean Corpuscular HGB Conc 31.6 g/dl (31.0-37.0); Mean Corpuscular Hemoglobin 28.4 pg (25.0-35.0); Mean Corpuscular Volume 90 fL (80-100); Monocytes # (Auto) 0.7 Thou/mm3 (0.0-0.8); Monocytes % (Auto) 8 % (0-12); Neutrophils # (Auto) 6.9 Thou/mm3 (1.8-7.7); Neutrophils % (Auto) 70 % (37-80); Nucleated Red Blood Cell # 0.00 Thou/mm3 (0.00-0.00); Nucleated Red Blood Cell % 0 /100 WBC (0); Platelet Count 260 Thou/mm3 (140-440); RDW Standard Deviation 44.4 fL (36.4-46.3); Red Blood Count 5.22 Miln/mm3 (4.00-5.20); White Blood Count 9.8 Thou/mm3 (3.6-11.0)
[2025-11-23 11:55] LABS: Alanine Aminotransferase 12 U/L (10-49); Albumin, Serum 4.0 gm/dL (3.4-4.8); Albumin/Globulin Ratio 1.5 (1.2-2.2); Alkaline Phosphatase 115 U/L (46-116); Anion Gap 11 (7-16); Aspartate Amino Transferase 16 U/L (0-34); BUN/Creatinine Ratio 19 Ratio (12-20); Bilirubin,Total 0.5 mg/dL (0.3-1.2); Blood Urea Nitrogen 13 mg/dL (9-23); Calcium 10.1 mg/dL (8.3-10.6); Calcium (Corrected) 10.1 mg/dL (8.5-10.1); Carbon Dioxide 27.7 mMol/L (20.0-31.0); Cardiac Risk Estimate 2.9 RATIO (3.7-5.6); Chloride 104 mMol/L (98-107); Cholesterol 156 mg/dL (132-200); Creatinine (Component) 0.7 mg/dL (0.6-1.3); Free T4 (Free Thyroxine) 1.27 ng/dL (0.89-1.76); Globulin 2.7 gm/dL (2.3-3.5); Glucose 104 mg/dL (74-106); HDL Cholesterol 53 mg/dL (40-60); LDL Cholesterol,Calculated 81 mg/dL (0-130); Osmolality,Calculated 285 (275-295); Potassium 4.2 mMol/L (3.4-5.1); Sodium 143 mMol/L (136-145); Thyroid Stimulating Hormone 4.84 uIU/mL (0.55-4.78); Total Protein 6.7 gm/dL (5.7-8.2); Triglycerides 109 mg/dL (30-150); Uric Acid 4.6 mg/dL (3.1-7.8); eGFR > 60 See Note
[2025-11-29 07:27] LABS: T3,Total* 91 ng/dL (76-181)
== END | disposition home or self-care (01) ==
LOC: COPL 10:08
PROVIDERS: PCP Family Medicine; Referring Provider Nurse Practitioner; Visit Provider Nurse Practitioner
DX: M10.09 Idiopathic gout, multiple sites (principal); E03.9 Hypothyroidism, unspecified; I10 Essential (primary) hypertension; E78.5 Hyperlipidemia, unspecified
CPT/HCPCS: 36415; 80053; 80061; 84439; 84443; 84480; 84550; 85025